=== PATIENT | male | born 1935 | race Caucasian/White ===

== ENCOUNTER 2017-05-02 16:09 | Emergency (ER) | payer MEDICARE, OTHER ==
--- NOTE | 2017-05-02 16:26 | UC ---
Throat Pain/Nasal Boby HPI - HPI Summary HPI Summary: 81 year old male presents with shortness of breath on exertion and O2 saturation of < 90. I will send him to the ER. - History of Current Complaint Chief Complaint: UCRespiratory Stated Complaint: CONGESTION Time Seen by Provider: 05/02/17 16:26 Hx Obtained From: Patient Onset/Duration: Sudden Onset Severity: Moderate - Allergies/Home Medications Allergies/Adverse Reactions: Allergies Allergy/AdvReac Type Severity Reaction Status Date / Time No Known Allergies Allergy Verified 05/02/17 16:25 Home Medications: Home Medications Aspirin EC Low Dose* [Ecotrin EC Low Dose 81 MG*] 81 mg PO BID 05/02/17 [ History Confirmed 05/02/17] Atorvastatin* [Lipitor*] 40 mg PO DAILY 05/02/17 [History Confirmed 05/02/17] Cholecalciferol [Vitamin D-3] 2,000 unit PO DAILY 05/02/17 [History Confirmed ] Metoprolol Tartrate TAB* [Lopressor TAB*] 100 mg PO BID 05/02/17 [History Confirmed 05/02/17] Valsartan TAB* [Diovan TAB*] 160 mg PO DAILY 05/02/17 [History Confirmed ] amLODIPine TAB* [Norvasc 5 mg TAB*] 10 mg PO DAILY 05/02/17 [History Confirmed 05/02/17] metFORMIN* [Glucophage 500 MG TAB *] 500 mg PO DAILY 05/02/17 [History Confirmed 05/02/17] PMH/Surg Hx/FS Hx/Imm Hx Previously Healthy: Yes - Surgical History Surgical History: Yes Surgery Procedure, Year, and Place: Cardiac stents - Social History Alcohol Use: None Substance Use Type: None Smoking Status (MU): Heavy Every Day Tobacco Smoker Type: Cigarettes Amount Used/How Often: 1/2 ppd Review of Systems Constitutional: Negative Skin: Negative Eyes: Negative ENT: Negative Respiratory: Shortness Of Breath Cardiovascular: Negative Gastrointestinal: Negative Genitourinary: Negative Motor: Negative Neurovascular: Negative Musculoskeletal: Negative Neurological: Negative Psychological: Negative All Other Systems Reviewed And Are Negative: Yes Physical Exam Triage Information Reviewed: Yes Vital Signs: Initial Vital Signs Temp 36.6 C 05/02/17 16:19 Pulse 90 05/02/17 16:19 Resp 20 11/15/17 16:19 BP 119/62 05/02/17 16:19 Vital Signs Reviewed: Yes Eye Exam: Normal ENT Exam: Normal Dental Exam: Normal Neck exam: Normal Neck: Positive: 1 Respiratory Exam: Normal Respiratory: Positive: Wheezing Cardiovascular Exam: Normal Abdominal Exam: Normal Musculoskeletal Exam: Normal Neurological Exam: Normal Psychological Exam: Normal Skin Exam: Normal Throat Pain/Nasal Course/Dx - Differential Dx/Diagnosis Provider Diagnoses: DYSPNEA Discharge - Discharge Plan Condition: Stable Disposition: [facility] Patient Education Materials: Dyspnea (ED) Referrals: Felicia Murphy MD [Primary Care Provider] -
[2017-05-02 16:52] VITALS: BP 120/74
== END 2017-05-02 16:59 | disposition short-term general hospital (02) ==
LOC: UCCORT 16:09
DX: R06.09 Other forms of dyspnea (principal); Z79.82 Long term (current) use of aspirin; Z95.5 Presence of coronary angioplasty implant and graft; F17.210 Nicotine dependence, cigarettes, uncomplicated
CPT/HCPCS: 99203; G0463